=== PATIENT | female | born 1980 | race Caucasian/White ===

== ENCOUNTER 2019-03-03 17:27 | Emergency (ER) | payer OTHER ==
[~2019-03-03] VITALS: Ht 175.3 cm; Wt 107.5 kg
[~2019-03-03 17:27] MED LIST: ESTR2 PO; PRED20 PO
[2019-03-03] MEDS ORDERED: LEVFLO500 PO (20:08)
== END 2019-03-03 20:18 | disposition home or self-care (01) ==
LOC: ER 17:27
DX: S91.331A Puncture wound without foreign body, right foot, initial encounter (principal); Z23 Encounter for immunization; Z88.5 Allergy status to narcotic agent; W45.0XXA Nail entering through skin, initial encounter
CPT/HCPCS: 73620; 90471; 90714; 99283-25

== ENCOUNTER 2020-08-06 10:43 | Day surgery (SDC) | payer OTHER ==
[~2020-08-06] VITALS: Ht 177.8 cm; Wt 120.5 kg
[~2020-08-06 10:43] MED LIST changes: +ALBU90OI; +LEVFLO500 PO; +Lisinopril-Hct1 EAC4; +OMEP20ER
== END 2020-08-06 12:25 | disposition home or self-care (01) ==
LOC: ORSCSDS 10:43
PROVIDERS: Internal Medicine Gastroenterology
PROC: 0DB68ZX Excision of Stomach, Via Natural or Artificial Opening Endoscopic, Diagnostic (ICD-10-PCS; principal; 2020-08-06 12:00)
PROC: 0DB58ZX Excision of Esophagus, Via Natural or Artificial Opening Endoscopic, Diagnostic (ICD-10-PCS; principal; 2020-08-06 12:00)
DX: K20.0 Eosinophilic esophagitis (principal); K44.9 Diaphragmatic hernia without obstruction or gangrene; I10 Essential (primary) hypertension; Z79.899 Other long term (current) drug therapy
CPT/HCPCS: 88305; 88342; J2704; J7120